=== PATIENT | male | born 1970 | race Caucasian/White ===

== ENCOUNTER 2018-01-18 06:03 | Inpatient (IN) | payer OTHER ==
[2018-01-12 12:00] LABS: BASOPHILS # (AUTO) 0.1 X10'3 (0-0.2); BASOPHILS % (AUTO) 0.7 % (0-1); EOSINOPHILS # (AUTO) 0.3 X10'3 (0-0.9); EOSINOPHILS % (AUTO) 4.5 % (0-6); LYMPHOCYTES % (AUTO) 27.7 % (21-51); MEAN CORPUSCULAR HEMOGLOBIN 31.8 PG (27.0-31.0); MEAN CORPUSCULAR HGB CONC 34.2 % (33.0-36.5); MEAN PLATELET VOLUME 8.9 FL (7.4-10.4); MONOCYTES # (AUTO) 0.7 X10'3 (0-0.9); MONOCYTES % (AUTO) 9.7 % (2-12); NEUTROPHILS # (AUTO) 4.2 X10'3 (1.8-7.7); NEUTROPHILS % (AUTO) 57.4 % (42-75); PRE OP HEMATOCRIT 42.3 % (42.0-52.0); PRE OP HEMOGLOBIN 14.5 g/dL (14.0-17.9); PRE OP PLATELET COUNT 256 X10'3 (140-440); RED BLOOD COUNT 4.54 X10'6 (4.70-6.10); RED CELL DISTRIBUTION WIDTH 12.8 % (11.5-14.5)
[2018-01-12 12:16] LABS: ALBUMIN 3.7 G/DL (3.4-5.0); ALBUMIN/GLOBULIN RATIO 1.1 (1.1-1.5); ALKALINE PHOSPHATASE 85 IU/L (46-116); BLOOD UREA NITROGEN 13 MG/DL (7-18); BUN/CREATININE RATIO 17.1 (5.4-32.0); CALCIUM 8.7 MG/DL (8.5-10.1); CHLORIDE 102 MMOL/L (99-107); CREATININE 0.76 MG/DL (0.60-1.10); PRE OP ALT 19 U/L (30-65); PRE OP ANION GAP 6 (8-16); PRE OP AST 18 U/L (10-37); PRE OP BILIRUB, TOTAL 0.6 MG/DL (0.0-1.0); PRE OP GLUCOSE 96 MG/DL (70-104); PRE OP SODIUM 139 MMOL/L (135-145); TOTAL CARBON DIOXIDE 30.8 MMOL/L (24-32); TOTAL PROTEIN 7.2 G/DL (6.4-8.2); eGFR > 90 ML/MIN
[~2018-01-18] VITALS: Ht 165.1 cm; Wt 74.8 kg
[2018-01-18] VITALS (16 sets, daily range): BP systolic 98–136; BP diastolic 54–84
[~2018-01-18 06:03] MED LIST: HYDR-4353 PO; VANCOMYCIN INJ 1000 MG in NORMAL SALINE 250ml IV.SOLN IV ONE; cefazolin/dext.iso 2gm/100 ML IV ONE; famotidine 20mg tablet PO ONE; ringers solution, lacted 1,000 ML IV SCH; tranexamic acid inj. 750 MG in normal saline 100ml IV soln 92.5 ML IV ONE
[2018-01-18] MEDS ORDERED: LIDOcaine 1% (10mg/ml) 2ml vial ONE (06:32)
[2018-01-18] MEDS ORDERED: vancomycin 1,000mg inj ONE (07:43)
[2018-01-18] MEDS ORDERED: ROPIVAcaine 0.5% (5mg/ml) 30ml vial ONE ×2 (07:43→09:47)
[2018-01-18] MEDS ORDERED: ketorolac trometh. 30mg/ml inj. ONE (07:43)
[2018-01-18] MEDS ORDERED: tetracaine 1% (10mg/ml) pres. free inj. ONE (08:25)
[2018-01-18] MEDS ORDERED: cloNIDine hcl/PF 100mcg/ml inj ONE (08:25)
[2018-01-18] MEDS ORDERED: fentaNYL/PF 50MCG/1 ML 2ML syringe ONE ×2 (08:30→09:24)
[2018-01-18] MEDS ORDERED: MIDAZolam 5mg/5ml vial ONE (08:30)
[2018-01-18] MEDS ORDERED: morphine /PF 1mg/ml 10ml inj. ONE (08:31)
[2018-01-18] MEDS ORDERED: sevoflurane 250ml liquid IH ONE (08:47)
[2018-01-18] MEDS ORDERED: dexamethasone sod phosphate 10mg/ml inj ONE (08:47)
[2018-01-18] MEDS ORDERED: ePHEDrine 50MG/ML INJ. ONE (08:47)
[2018-01-18] MEDS ORDERED: LIDOcaine 1%/PF 5ML 10 MG/ML VIAL ONE (09:11)
[2018-01-18] MEDS ORDERED: propofol inj 20 ML IV ONE (09:11)
[2018-01-18] MEDS ORDERED: morphine 4 MG/ML inj SYRINge IV PRN ×2 (11:00)
[2018-01-18] MEDS ORDERED: diphenhydrAMINE 50 mg/ml inj IV PRN (11:00)
[2018-01-18] MEDS ORDERED: ringers solution, lacted 1,000 ML IV SCH (11:00)
[2018-01-18] MEDS ORDERED: naloxone 2mg/2ml inj 1.5 MG in normal saline 500ml IV soln 500 ML IV PRN (11:00)
[2018-01-18] MEDS ORDERED: proCHLORperazine 10 MG/2 ml inj IV PRN (11:00)
[2018-01-18] MEDS ORDERED: meperidine/PF 25mg/ml syringe IV PRN ×3 (11:00)
[2018-01-18] MEDS ORDERED: ondansetron/PF 4mg/2ml inj IV PRN ×3 (11:00→11:25)
[2018-01-18] MEDS ORDERED: HYDROmorphone 1 mg/ml syringe IV PRN ×2 (11:25)
[2018-01-18] MEDS ORDERED: HYDROcodone/acetaminophen 10/325mg tab PO PRN ×2 (11:25→20:35)
[2018-01-18] MEDS ORDERED: magnesium hydroxide 30ml (MOM) UD suspension PO PRN (11:25)
[2018-01-18] MEDS ORDERED: acetaminophen 325mg tablet PO PRN (11:25)
[2018-01-18] MEDS ORDERED: bisacodyl 10mg suppository rectal RC PRN (11:25)
[2018-01-18] MEDS ORDERED: oxyCODONE IR 5mg (immed. release) tablet PO PRN ×2 (11:25)
[2018-01-18] MEDS ORDERED: diphenhydrAMINE 25mg capsule PO PRN ×2 (11:25)
[2018-01-18] MEDS ORDERED: NORMAL SALINE IV ONE (14:30)
[2018-01-18] MEDS ORDERED: TRANEXAMIC ACID IV ONE (14:30)
[2018-01-18] MEDS: ketorolac tromethamine 15mg/ml inj. IV SCH ×2 (15:13→20:11)
[2018-01-18] MEDS: acetaminophen 325mg tablet PO SCH ×2 (15:14→20:10)
[2018-01-18] MEDS: gabapentin 300mg capsule PO SCH ×2 (15:22→20:08)
[2018-01-18] MEDS: ceFAZolin 1GM/D5W- ADD-VANTAGE 50 ML IV SCH ×2 (16:06→23:40)
[2018-01-18] MEDS: potassium cl 20mEq in 1/2 NS 1,000 ML IV SCH ×2 (19:21→20:05)
[2018-01-18] MEDS ORDERED: vancomycin/NS 1 GM ADD-VANTAGE 250 ML IV SCH (20:00)
[2018-01-18] MEDS ORDERED: HYDROcodone/acetaminophen 5mg/325mg tablet PO PRN (20:35)
[2018-01-18] MEDS ORDERED: sennosides 8.6mg tablet PO SCH (21:00)
[2018-01-19 02:00] VITALS: BP 99/54
[2018-01-19] MEDS: ketorolac tromethamine 15mg/ml inj. IV SCH ×2 (02:14→07:09)
[2018-01-19] MEDS: acetaminophen 325mg tablet PO SCH ×2 (02:15→07:09)
[2018-01-19] MEDS: potassium cl 20mEq in 1/2 NS 1,000 ML IV SCH (05:18)
[2018-01-19 05:54] LABS: BASOPHILS % (AUTO) 0.2 % (0-1); EOSINOPHILS # (AUTO) 0.2 X10'3 (0-0.9); EOSINOPHILS % (AUTO) 1.6 % (0-6); HEMATOCRIT 34.1 % (42.0-52.0); HEMOGLOBIN 11.5 g/dl (14.0-17.9); LYMPHOCYTES # (AUTO) 2.1 X10'3 (1.1-4.8); LYMPHOCYTES % (AUTO) 20.6 % (21-51); MEAN CORPUSCULAR HEMOGLOBIN 31.9 PG (27.0-31.0); MEAN CORPUSCULAR HGB CONC 33.9 % (33.0-36.5); MEAN CORPUSCULAR VOLUME 94.2 FL (78-98); MONOCYTES # (AUTO) 1.2 X10'3 (0-0.9); NEUTROPHILS # (AUTO) 6.6 X10'3 (1.8-7.7); NEUTROPHILS % (AUTO) 65.6 % (42-75); PLATELET COUNT 205 X10'3 (140-440); RED BLOOD COUNT 3.62 X10'6 (4.70-6.10); RED CELL DISTRIBUTION WIDTH 13.6 % (11.5-14.5); WHITE BLOOD COUNT 10.1 X10'3 (4.5-11.0)
[2018-01-19 06:00] VITALS: BP 104/72
[2018-01-19 06:17] LABS: ANION GAP 5 (8-16); CHLORIDE 109 MMOL/L (99-107); POTASSIUM 3.8 MMOL/L (3.5-5.1); SODIUM 140 MMOL/L (135-145); TOTAL CARBON DIOXIDE 25.8 MMOL/L (24-32)
[2018-01-19] MEDS: gabapentin 300mg capsule PO SCH (07:09)
[2018-01-19] MEDS ORDERED: ASPI-1 PO (07:38)
[2018-01-19] MEDS ORDERED: aspirin 325mg tablet PO SCH (08:30)
[2018-01-19] MEDS ORDERED: celeCOXIB 100mg capsule PO SCH (20:00)
[2018-01-20] MEDS ORDERED: acetaminophen 325mg tablet PO PRN (11:25)
== END 2018-01-19 10:55 | disposition home or self-care (01) | DRG 470 ==
LOC: PAS IN 06:03 → EDSTATUS 07:30 → ORTHO 4S 12:30
PROVIDERS: ADMIT Orthopaedic Surgery; ATTEND Orthopaedic Surgery
PROC: 8E0YXBZ Computer Assisted Procedure of Lower Extremity (ICD-10-PCS; 2018-01-18)
PROC: 8E0YXCZ Robotic Assisted Procedure of Lower Extremity (ICD-10-PCS; 2018-01-18)
PROC: 3E0T3BZ Introduction of Anesthetic Agent into Peripheral Nerves and Plexi, Percutaneous Approach (ICD-10-PCS; 2018-01-18)
PROC: 0SRC0J9 Replacement of Right Knee Joint with Synthetic Substitute, Cemented, Open Approach (ICD-10-PCS; principal; 2018-01-18 08:47)
DX: M17.11 Unilateral primary osteoarthritis, right knee (principal); D62 Acute posthemorrhagic anemia; M21.261 Flexion deformity, right knee; M21.161 Varus deformity, not elsewhere classified, right knee; Z79.899 Other long term (current) drug therapy; Z72.89 Other problems related to lifestyle
CPT/HCPCS: 36415; 80051; 80053; 85025; 87070; 97110; 97116; 97161; 97530; A6255; A6455; A7000; C1713; C1758; C1776; J0690; J0735; J0780; J1100; J1885; J2001; J2250; J2274; J2310; J2704; J2795; J3010; J3370; J3490; J7030; J7120

== ENCOUNTER 2020-11-21 14:10 | Emergency (ER) | payer OTHER ==
[~2020-11-21] VITALS: Ht 165.1 cm; Wt 72.7 kg
[~2020-11-21 14:10] MED LIST changes: +ASPI-1 PO; -HYDR-4353 PO; +NO HOME MEDS; +ONQPUMP ADDCANAL; -VANCOMYCIN INJ 1000 MG in NORMAL SALINE 250ml IV.SOLN IV ONE; -cefazolin/dext.iso 2gm/100 ML IV ONE; -famotidine 20mg tablet PO ONE; -ringers solution, lacted 1,000 ML IV SCH; -tranexamic acid inj. 750 MG in normal saline 100ml IV soln 92.5 ML IV ONE
[2020-11-21] MEDS ORDERED: LIDOcaine 1% W/epiNEPHrine 1:200,000 10ml vial IJ ONE (14:35)
[2020-11-21] MEDS ORDERED: TETanus/Pertussis (Acell)/Diphther VAC/PF (Tdap-Adult) 0.5ml syringe IMVAC ONE (14:35)
[2020-11-21 14:46] VITALS: BP 140/93
== END 2020-11-21 16:50 | disposition home or self-care (01) ==
LOC: ER 14:11
DX: S61.012A Laceration without foreign body of left thumb without damage to nail, initial encounter (principal); G89.29 Other chronic pain; Z79.82 Long term (current) use of aspirin; Z20.3 Contact with and (suspected) exposure to rabies; W45.8XXA Other foreign body or object entering through skin, initial encounter; Y93.89 Activity, other specified; Y92.89 Other specified places as the place of occurrence of the external cause; Y99.8 Other external cause status
CPT/HCPCS: 12002; 90471; 90715; 99283